=== PATIENT | male | born 1965 ===

== ENCOUNTER → 2017-11-07 08:30 | Outpatient (CLI) | payer OTHER | END | disposition home or self-care (01) | LOC: LAB 08:30 | DX: I10 Essential (primary) hypertension (principal); R80.9 Proteinuria, unspecified; Z12.11 Encounter for screening for malignant neoplasm of colon; E78.2 Mixed hyperlipidemia; E03.9 Hypothyroidism, unspecified; N20.1 Calculus of ureter ==